=== PATIENT | male | born 1965 | race Caucasian/White ===

== ENCOUNTER 2019-10-13 08:53 | Inpatient (IN) | payer BC ==
[~2019-10-13] VITALS: Ht 177.8 cm; Wt 75.4 kg
[2019-10-13] VITALS (11 sets, daily range): BP systolic 92–170; BP diastolic 52–79
[~2019-10-13 08:53] MED LIST: HYDR1CAP2 PO; LNS30CCR PO
[2019-10-13 09:34] LABS: BASOPHILS # (AUTO) 0.1 10^3/uL (0.0-0.1); BASOPHILS % (AUTO) 1 % (0-10); EOSINOPHILS # (AUTO) 0.1 10^3/uL (0.0-0.3); EOSINOPHILS % (AUTO) 2 % (0-10); HEMATOCRIT 25 % (40-54); HEMOGLOBIN 7.2 G/DL (13.3-17.7); LYMPHOCYTES # (AUTO) 1.2 X 10^3 (1.0-4.0); LYMPHOCYTES % (AUTO) 16 % (12-44); MEAN CORPUSCULAR HEMOGLOBIN 22 PG (25-34); MEAN CORPUSCULAR HGB CONC 29 G/DL (32-36); MEAN CORPUSCULAR VOLUME 77 FL (80-99); MEAN PLATELET VOLUME 9.4 FL (7.4-10.4); MONOCYTES # (AUTO) 0.7 X 10^3 (0.0-1.0); MONOCYTES % (AUTO) 10 % (0-12); NEUTROPHILS # (AUTO) 5.4 X 10^3 (1.8-7.8); NEUTROPHILS % (AUTO) 72 % (42-75); PLATELET COUNT 411 10^3/uL (130-400); RED CELL DISTRIBUTION WIDTH 18.2 % (10.0-14.5); WHITE BLOOD COUNT 7.6 10^3/uL (4.3-11.0)
[2019-10-13 09:44] LABS: BILIRUBIN,URINE NEGATIVE (NEGATIVE); CLARITY,URINE CLEAR; COLOR,URINE YELLOW; GLUCOSE, URINE (UA) NEGATIVE (NEGATIVE); KETONES,URINE NEGATIVE (NEGATIVE); LEUKOCYTE ESTERASE ,URINE NEGATIVE (NEGATIVE); NITRITE,URINE NEGATIVE (NEGATIVE); PH,URINE 5.5 (5-9); PROTEIN,URINE NEGATIVE (NEGATIVE)
[2019-10-13 09:52] LABS: INR 0.9 (0.8-1.4); PROTHROMBIN TIME PATIENT 12.8 SEC (12.2-14.7)
[2019-10-13 09:56] LABS: BACTERIA,URINE NEGATIVE /HPF; RBC,URINE RARE /HPF; URINE OTHER FEW SPERM /HPF; WBC,URINE RARE /HPF
[2019-10-13 10:09] LABS: ALANINE AMINOTRANSFERASE 10 U/L (0-55); ALKALINE PHOSPHATASE 51 U/L (40-136); BILIRUBIN,TOTAL 0.2 MG/DL (0.1-1.0); BUN/CREATININE RATIO 25; CALCIUM 9.1 MG/DL (8.5-10.1); CARBON DIOXIDE 24 MMOL/L (21-32); CHLORIDE 109 MMOL/L (98-107); CREATININE SERUM 0.87 MG/DL (0.60-1.30); GFR ESTIMATED > 60; GLUCOSE 143 MG/DL (70-105); POTASSIUM 3.7 MMOL/L (3.6-5.0); SODIUM 141 MMOL/L (135-145); TOTAL PROTEIN 6.6 GM/DL (6.4-8.2)
[2019-10-13] MEDS ORDERED: NS IV 500 ML 500 ML ONE (10:26)
--- NOTE | 2019-10-13 10:32 | ED GI ---
General Chief Complaint: Abdominal/GI Problems Stated Complaint: WEAKNESS,BLACK STOOLS Nursing Triage Note: Pt reports black stools yesterday and severe fatigue and weakness today. Pt reports history of heavy whiskey drinking off and on for the past ten years. Pt reports drinking 1 pint of whiskey most days. Pt denies pain. Sepsis Screen: No Definite Risk Source of Information: Patient Exam Limitations: No Limitations History of Present Illness Date Seen by Provider: Oct 13, 2019 Time Seen by Provider: 09:07 Initial Comments This 54-year-old gentleman presents to the emergency room feeling severely weak and fatigued today. He was having difficulty ambulating stairs which is unusual for him. He reports melena since last night. He has had no bright red blood per rectum and no hematemesis. He denies nausea, vomiting, or diarrhea. He has no shortness of breath. He denies any significant health problems except "acid reflux and indigestion with possible hiatal hernia". He does admit to drinking alcohol daily, usually about a pint of hard alcohol. His last alcoholic beverage was October 10. He has no local primary care provider and takes no medications except iptv-zeq-krziili Gaviscon. Gaviscon did not help this morning. He is noted to be mildly tachycardic with a systolic blood pressure in the 90s. Allergies and Home Medications Allergies Coded Allergies: No Known Drug Allergies (Unverified , 04/27/10) Home Medications Lansoprazole 15 Mg Capsule.dr, 15 MG PO DAILY, (Reported) Patient Home Medication List Home Medication List Reviewed: Yes Review of Systems Review of Systems Constitutional: see HPI EENTM: No Symptoms Reported Respiratory: No Symptoms Reported Cardiovascular: No Symptoms Reported Gastrointestinal: See HPI Genitourinary: No Symptoms Reported Musculoskeletal: no symptoms reported Skin: no symptoms reported Psychiatric/Neurological: See HPI Endocrine: No Symptoms Reported Past Ksulmjh-Ztmrzy-Ctkeuz Hx Past Med/Social Hx: Reviewed and Corrections made Patient Social History Alcohol Use: Regular Use Alcohol Beverage of Choice: Whiskey Recreational Drug Use: No Smoking Status: Current Everyday Smoker Type Used: Cigarettes 2nd Hand Smoke Exposure: Yes Recent Foreign Travel: No Contact w/Someone Who Travel: No Recent Infectious Disease Expo: No Recent Hopitalizations: No Past Medical History Surgeries: Yes (wisdom teeth) Respiratory: No Cardiac: No Neurological: No Genitourinary: No Gastrointestinal: Yes Gastroesophageal Reflux Musculoskeletal: No Endocrine: No HEENT: No Cancer: No Psychosocial: No Integumentary: No Blood Disorders: No Physical Exam Vital Signs Vital Signs - First Documented 10/13/19 09:00 Temp 36.7 Pulse 103 Resp 17 B/P (MAP) 113/86 (95) Pulse Ox 100 O2 Delivery Room Air Capillary Refill : Less Than 3 Seconds Height/Weight/BMI Height: '" Weight: lbs. oz. kg; 23.00 BMI Method: General Appearance: WD/WN HEENT: PERRL/EOMI, normal ENT inspection Neck: normal inspection Respiratory: lungs clear, normal breath sounds, no respiratory distress, no accessory muscle use Cardiovascular: regular rate, rhythm, no edema, no murmur Gastrointestinal: normal bowel sounds, non tender, soft Extremities: normal inspection, no pedal edema Neurologic/Psychiatric: down filler II-XII nml as tested, no motor/sensory deficits, alert, normal mood/affect, oriented x 3 Skin: normal color, warm/dry Progress/Results/Core Measures Results/Orders Lab Results Laboratory Tests Test 10/13/19 09:15 10/13/19 09:35 Range/Units White Blood Count 7.6 4.3-11.0 10^3/uL Red Blood Count 3.26 L 4.35-5.85 10^6/uL Hemoglobin 7.2 L 13.3-17.7 G/DL Hematocrit 25 L 40-54 % Mean Corpuscular Volume 77 L 80-99 FL Mean Corpuscular Hemoglobin 22 L 25-34 PG Mean Corpuscular Hemoglobin Concent 29 L 32-36 G/DL Red Cell Distribution Width 18.2 H 10.0-14.5 % Platelet Count 411 H 130-400 10^3/uL Mean Platelet Volume 9.4 7.4-10.4 FL Neutrophils (%) (Auto) 72 42-75 % Lymphocytes (%) (Auto) 16 12-44 % Monocytes (%) (Auto) 10 0-12 % Eosinophils (%) (Auto) 2 0-10 % Basophils (%) (Auto) 1 0-10 % Neutrophils # (Auto) 5.4 1.8-7.8 X 10^3 Lymphocytes # (Auto) 1.2 1.0-4.0 X 10^3 Monocytes # (Auto) 0.7 0.0-1.0 X 10^3 Eosinophils # (Auto) 0.1 0.0-0.3 10^3/uL Basophils # (Auto) 0.1 0.0-0.1 10^3/uL Prothrombin Time 12.8 12.2-14.7 SEC INR Comment 0.9 0.8-1.4 Activated Partial Thromboplast Time 23 L 24-35 SEC Sodium Level 141 135-145 MMOL/L Potassium Level 3.7 3.6-5.0 MMOL/L Chloride Level 109 H 98-107 MMOL/L Carbon Dioxide Level 24 21-32 MMOL/L Anion Gap 8 5-14 MMOL/L Blood Urea Nitrogen 22 H 7-18 MG/DL Creatinine 0.87 0.60-1.30 MG/DL Estimat Glomerular Filtration Rate > 60 BUN/Creatinine Ratio 25 Glucose Level 143 H 70-105 MG/DL Calcium Level 9.1 8.5-10.1 MG/DL Corrected Calcium 9.1 8.5-10.1 MG/DL Total Bilirubin 0.2 0.1-1.0 MG/DL Aspartate Amino Transf (AST/SGOT) 11 5-34 U/L Alanine Aminotransferase (ALT/SGPT) 10 0-55 U/L Alkaline Phosphatase 51 40-136 U/L Total Protein 6.6 6.4-8.2 GM/DL Albumin 4.0 3.2-4.5 GM/DL Urine Color YELLOW Urine Clarity CLEAR Urine pH 5.5 5-9 Urine Specific Hines >=1.030 1.016-1.022 Urine Protein NEGATIVE NEGATIVE Urine Glucose (UA) NEGATIVE NEGATIVE Urine Ketones NEGATIVE NEGATIVE Urine Nitrite NEGATIVE NEGATIVE Urine Bilirubin NEGATIVE NEGATIVE Urine Urobilinogen 0.2 < = 1.0 MG/DL Urine Leukocyte Esterase NEGATIVE NEGATIVE Urine RBC (Auto) NEGATIVE NEGATIVE Urine RBC RARE /HPF Urine WBC RARE /HPF Urine Crystals NONE /LPF Urine Bacteria NEGATIVE /HPF Urine Casts NONE /LPF Urine Mucus SMALL H /LPF Urine Other FEW SPERM H /HPF Urine Culture Indicated NO My Orders Orders - SACHA TOLEDO MD Cbc With Automated Diff (10/13/19 09:07) Comprehensive Metabolic Panel (10/13/19 09:07) Protime With Inr (10/13/19 09:07) Partial Thromboplastin Time (10/13/19 09:07) Ed Iv/Invasive Line Start (10/13/19 09:07) Ua Culture If Indicated (10/13/19 09:07) Red Cells Leukocytes Reduced (10/13/19 09:39) Type And Screen (10/13/19 09:39) Ns Iv 500 Ml (Sodium Chloride 0.9%) (10/13/19 10:26) Medications Given in ED Vital Signs/I&O 10/13/19 09:00 Temp 36.7 Pulse 103 Resp 17 B/P (MAP) 113/86 (95) Pulse Ox 100 O2 Delivery Room Air Blood Pressure Mean: 95 Progress Progress Note : Time: 10:40 Progress Note Patient was found to be severely anemic with a hemoglobin of 7.2. Because of his mild tachycardia, marginal blood pressure, and symptoms, it was deemed appropriate to transfuse. He will be transfused one unit of packed red blood cells and one unit will be held. I spoke with Dr. Benson who ideally would like to prep him to day and perform both upper and lower endoscopy tomorrow. Protonix will be given in the ER. Patient is being admitted to the hospital service at Dr. Benson's request. Departure Communication (Admissions) Time/Spoke to Admitting Phy: 10:35 Dr. Mclain Time/Spoke to Consulting Phy: 10:15 Dr. Benson Impression Primary Impression: Severe anemia Additional Impressions: Melena Generalized weakness Disposition: ADMITTED INPATIENT Condition: Stable Admissions Decision to Admit Reason: Admit from ER (General) Decision to Admit/Date: Oct 13, 2019 Time/Decision to Admit Time: 10:15 Departure-Patient Inst. Referrals: NO,LOCAL PHYSICIAN (PCP/Family) Primary Care Physician SACHA TOLEDO MD Oct 13, 2019 10:32
[2019-10-13] MEDS ORDERED: PANTOPRAZOLE 40 MG (PROTONIX) VIAL IV ONE (10:45)
--- NOTE | 2019-10-13 10:56 | NUR ---
Delay in second set of vitals as spacelab would not take blood pressure. This nurse had to obtain portable vital machine from fast track.
--- NOTE | 2019-10-13 11:10 | NUR ---
Pt tolerating blood transfusion well. Pt taken another warm blanket.
--- NOTE | 2019-10-13 11:30 | NUR ---
THERE WAS AN ERROR IN ADMISSION PART A VITALS THAT WERE CHARTED. THE CORRECTED VITALS ARE: BLOOD PRESSURE 106/67 RIGHT ARM HEART RATE 96 TEMP. 36.0 C RESP 18 SPO2 98& PAIN 0
--- NOTE | 2019-10-13 11:30 | NUR ---
KARLA DAVIS admitted to room 417-1, with an admitting diagnosis of MELENA AND SEVERE ANEMIA, on 10/13/19 from ED via [facility], accompanied by ED STAFF. KARLA DAVIS introduced to surroundings, call light, bed controls, phone, TV, temperature control, lights, meal times, smoking policy, visitor policy, side rail policy, bathrooms and showers. Patient Rights given to patient in the handbook. KARLA DAVIS verbalizes understanding that [facility] is not responsible for the loss or damage to any personal effects or valuables that are kept in the patients possession during their hospitalization. The following Patient Care Plans were discussed with the PATIENT: Discharge Planning, GASTROINTESTINAL BLEED, ANEMIA and KNOWLEDGE DEFICIT. KARLA DAVIS verbalizes understanding of Interdisciplinary Patient Education. Patient and/or family were informed about the Rapid Response Team and its purpose.
--- NOTE | 2019-10-13 11:30 | NUR ---
Blood products running to floor.
[2019-10-13] MEDS ORDERED: 1/2 NS IV SOLUTION 1,000 ML IV PRN (12:08)
[2019-10-13] MEDS ORDERED: SENNA W/DOCUSATE (SENOKOT S) TABLET PO PRN (12:15)
[2019-10-13] MEDS ORDERED: fentaNYL INJECTION 100 MCG/2 ML AMP IVP PRN (12:15)
[2019-10-13] MEDS ORDERED: ONDANSETRON 4 MG/2 ML (SDV) Z0FRAN IVP PRN (12:15)
[2019-10-13] MEDS ORDERED: ANTACID SUSP 30 ML UDC (MYLANTA) PO PRN (12:15)
[2019-10-13] MEDS ORDERED: LORazepam 1 MG (ATIVAN) TAB PO PRN (12:15)
[2019-10-13] MEDS ORDERED: LORazepam INJ 2 MG/ML (ATIVAN) VIAL IM/IV PRN (12:15)
[2019-10-13] MEDS ORDERED: ONDANSETRON 4 MG/2 ML (SDV) Z0FRAN IV PRN (12:15)
[2019-10-13] MEDS ORDERED: D5 1/2 NS 1000 ML IV SOLUTION 1,000 ML IV PRN (12:15)
[2019-10-13] MEDS ORDERED: LORazepam INJ 2 MG/ML (ATIVAN) VIAL IV PRN (12:15)
[2019-10-13] MEDS ORDERED: ONDANSETRON 4 MG (ZOFRAN) ORAL DISSOLVE TAB SL PRN (12:15)
[2019-10-13] MEDS: NICOTINE 21 MG (NICODERM) PATCH TD SCH (12:35)
[2019-10-13] MEDS ORDERED: BISACODYL 5 MG (DULCOLAX) TABLET PO NR ×2 (13:30→15:00)
[2019-10-13] MEDS: THIAMINE INJECTION 100 MG, FOLIC ACID INJECTION 1 MG, MAGNESIUM SULFATE 2 GM, VITAMIN M... IV SCH ×5 (13:34)
[2019-10-13] MEDS: D5 1/2 NS W/KCL 20 MEQ/L 1,000 ML IV SCH ×2 (13:34→19:59)
[2019-10-13] MEDS ORDERED: LANS15CA5 PO (13:49)
[2019-10-13] MEDS ORDERED: IBUP-2473 PO (13:49)
--- NOTE | 2019-10-13 13:51 | NUR ---
SPOKE WITH THE PT TO UPDATE THE MED REC. PT SAYS HE DOES NOT TAKE ANY PRESCRIPTION MEDICATIONS AND THE ONLY THING HE TAKES ARE OTC'S. OTC MEDS: PRILOSEC IBUPROFEN
--- NOTE | 2019-10-13 14:03 | Consultation - Surgery ---
History of Present Illness History of Present Illness Patient Consulted On(werner/time) 10/13/19 13:55 Time Seen by Provider: 13:24 History of Present Illness Surgery asked to consult regarding Anemia and Melena. HPI per ED: Pt reports black stools yesterday and severe fatigue and weakness today. Pt reports history of heavy whiskey drinking off and on for the past ten years. Pt reports drinking 1 pint of whiskey most days. Pt denies pain. This 54-year-old gentleman presents to the emergency room feeling severely weak and fatigued today. He was having difficulty ambulating stairs which is unusual for him. He reports melena since last night. He has had no bright red blood per rectum and no hematemesis. He denies nausea, vomiting, or diarrhea. He has no shortness of breath. He denies any significant health problems except "acid reflux and indigestion with possible hiatal hernia". He does admit to drinking alcohol daily, usually about a pint of hard alcohol. His last alcoholic beverage was October 10. He has no local primary care provider and takes no medications except iwhn-qcw-jhigiip Gaviscon. Gaviscon did not help this morning. He is noted to be mildly tachycardic with a systolic blood pressure in the 90s. When I spoke to pt this afternoon he states he has ever had black BM's before this and doesn't remember a time when he felt this weak. States he had a colonoscopy and Barium swallow in his 30's because "of acid reflux." Pt denies abdominal pain. Allergies and Home Medications Allergies Coded Allergies: No Known Drug Allergies (Unverified , 04/27/10) Home Medications Ibuprofen 200 Mg Tablet, 400 MG PO Q8H PRN for PAIN-MILD (1-4), (Reported) Lansoprazole 15 Mg Capsule.dr, 15 MG PO DAILY, (Reported) Patient Home Medication List Home Medication List Reviewed: Yes Past Lmfssem-Dfoxnj-Npsaws Hx Patient Social History Alcohol Use: Regular Use Recreational Drug Use: No Smoking Status: Current Everyday Smoker Type Used: Cigarettes 2nd Hand Smoke Exposure: Yes Recent Foreign Travel: No Contact w/Someone Who Travel: No Recent Infectious Disease Expo: No Recent Hopitalizations: No Surgeries History of Surgeries: Yes (wisdom teeth) Respiratory History of Respiratory Disorde: No Cardiovascular History of Cardiac Disorders: No Neurological History of Neurological Disord: No Genitourinary History of Genitourinary Disor: No Gastrointestinal History of Gastrointestinal Di: Yes Gastrointestinal Disorders: Gastroesophageal Reflux Musculoskeletal History of Musculoskeletal Dis: No Endocrine History of Endocrine Disorders: No HEENT History of HEENT Disorders: No Cancer History of Cancer: No Psychosocial History of Psychiatric Problem: No Integumentary History of Skin or Integumenta: No Blood Transfusions History of Blood Disorders: No Family Medical History Significant Family History: Diabetes (Father), Other Conditions/Hx (Mother had Hiatal hernia surgery) Review of Systems-General Constitutional: malaise, weakness EENTM: No blurred vision, No double vision, No mouth pain, No mouth swelling, No epistaxis, No throat swelling Respiratory: No cough; dyspnea on exertion; No hemoptysis Cardiovascular: No chest pain, No edema, No palpitations Gastrointestinal: No abdominal pain, No jaundice; melena; No nausea, No vomiting Genitourinary: No dysuria, No frequency, No hematuria Musculoskeletal: No joint pain, No joint swelling, No muscle stiffness Skin: No change in color, No change in hair/nails Psychiatric/Neurological: Denies Anxiety, Denies Depressed, Denies Seizure, Denies Tremors Other pt denies any hx of abnormal bleeding or bruising. Physical Exam-General Problems Physical Exam Vital Signs Vital Signs - First Documented 10/13/19 09:00 Temp 36.7 Pulse 103 Resp 17 B/P (MAP) 113/86 (95) Pulse Ox 100 O2 Delivery Room Air Capillary Refill : Less Than 3 Seconds General Appearance: WD/WN, no apparent distress Eyes: Bilateral Eye PERRL, Bilateral Eye EOMI HEENT: pharynx normal; No scleral icterus (R), No scleral icterus (L) Neck: non-tender, full range of motion, supple Respiratory: chest non-tender, lungs clear, normal breath sounds, no respiratory distress, no accessory muscle use Cardiovascular: regular rate, rhythm, no edema, no murmur Gastrointestinal: normal bowel sounds, non tender, soft, no organomegaly, no pulsatile mass Back: no CVA tenderness, no vertebral tenderness Extremities: normal range of motion, non-tender, normal inspection, no pedal edema, no calf tenderness, normal capillary refill Neurologic/Psychiatric: drug inspector II-XII nml as tested, no motor/sensory deficits, alert, normal mood/affect, oriented x 3 Skin: normal color, warm/dry Lymphatic: no adenopathy (neck, axilla or groin) Data Review Labs Laboratory Tests 10/13/19 09:15: White Blood Count 7.6, Red Blood Count 3.26L, Hemoglobin 7.2L, Hematocrit 25L, Mean Corpuscular Volume 77L, Mean Corpuscular Hemoglobin 22L, Mean Corpuscular Hemoglobin Concent 29L, Red Cell Distribution Width 18.2H, Platelet Count 411H, Mean Platelet Volume 9.4, Neutrophils (%) (Auto) 72, Lymphocytes (%) (Auto) 16, Monocytes (%) (Auto) 10, Eosinophils (%) (Auto) 2, Basophils (%) (Auto) 1, Karla trophils # (Auto) 5.4, Lymphocytes # (Auto) 1.2, Monocytes # (Auto) 0.7, Eosinophils # (Auto) 0.1, Basophils # (Auto) 0.1, Prothrombin Time 12.8, INR Comment 0.9, Activated Partial Thromboplast Time 23L, Sodium Level 141, Potassium Level 3.7, Chloride Level 109H, Carbon Dioxide Level 24, Anion Gap 8, Blood Urea Nitrogen 22H, Creatinine 0.87, Estimat Glomerular Filtration Rate > 60, BUN/Creatinine Ratio 25, Glucose Level 143H, Calcium Level 9.1, Corrected Calcium 9.1, Total Bilirubin 0.2, Aspartate Amino Transf (AST/SGOT) 11, Alanine Aminotransferase (ALT/SGPT) 10, Alkaline Phosphatase 51, Total Protein 6.6, Albumin 4.0 10/13/19 09:35: Urine Color YELLOW, Urine Clarity CLEAR, Urine pH 5.5, Urine Specific Ola >=1.030, Urine Protein NEGATIVE, Urine Glucose (UA) NEGATIVE, Urine Ketones NEGATIVE, Urine Nitrite NEGATIVE, Urine Bilirubin NEGATIVE, Urine Urobilinogen 0.2, Urine Leukocyte Esterase NEGATIVE, Urine RBC (Auto) NEGATIVE, Urine RBC RARE, Urine WBC RARE, Urine Crystals NONE, Urine Bacteria NEGATIVE, Urine Casts NONE, Urine Mucus SMALLH, Urine Other FEW SPERMH, Urine Culture Indicated NO Assessment/Plan Assessment/Plan Assessment/Plan Anemia Melena Pt is getting IV fluids, received one unit of PRBC, anti-emetics, pain control as needed. Prep for colonoscopy started now. Plan is EGD/Colonoscopy tomorrow around noon. Discussed the procedure with pt; including risks and complications not limited to pain, bleeding, infection, intestinal perforation and esophageal perforation. All questions answered to his satisfaction. Will obtain consent. DANIELLE MACE DO Oct 13, 2019 14:03
--- NOTE | 2019-10-13 15:23 | History & Physical-Hospitalist ---
History of Present Illness HPI/Chief Complaint Patient is 54-year-old male with past medical history of daily alcohol use who presented to the emergency department with chief complaint of low energy and black stools. He states he has had black stools in the past but has never had this worked up. He noticed that his stool yesterday morning was black. He was fatigued at that time but upon awakening this morning could hardly take a few steps due to the fatigue. He has since had another black stool. Found to have a hemoglobin of 7 and was admitted to the hospital for GI bleed. He believes he may be slightly pale but is unsure. Source: patient Exam Limitations: no limitations Date Seen 10/13/19 Time Seen by a Provider: 15:33 Attending Physician Forrest Mclain MD PCP No,Local Physician Referring Physician Date of Admission Oct 13, 2019 at 10:33 Home Medications & Allergies Home Medications Reviewed patient Home Medication Reconciliation performed by pharmacy medication reconciliations facilities operations technician and/or nursing. Patients Allergies have been reviewed. Allergies Allergies Coded Allergies No Known Drug Allergies (Unverified04/27/10) Past Zxhvmgf-Gorvvl-Bzkslu Hx Past Med/Social Hx: Reviewed Nursing Past Med/Soc Hx, Reviewed and Corrections made Patient Social History Alcohol Use: Regular Use Alcohol Beverage of Choice: Whiskey Recreational Drug Use: No Smoking Status: Current Everyday Smoker Type Used: Cigarettes 2nd Hand Smoke Exposure: Yes Recent Foreign Travel: No Contact w/other who traveled: No Recent Hopitalizations: No Recent Infectious Disease Expo: No Past Medical History Gastrointestinal: Gastroesophageal Reflux History of Blood Disorders: No Family History Cataracts 19 MOTHER Deafness or hearing loss 19 FATHER Diabetes mellitus 19 FATHER Headache disorder 19 MOTHER Diabetes (Father), Other Conditions/Hx (Mother had Hiatal hernia surgery) Review of Systems Constitutional: malaise, weakness EENTM: no symptoms reported Cardiovascular: no symptoms reported Gastrointestinal: No hematemesis; heartburn, melena; No nausea, No vomiting Genitourinary: no symptoms reported Musculoskeletal: no symptoms reported Skin: see HPI Psychiatric/Neurological: No Symptoms Reported Physical Exam Physical Exam Vital Signs Vital Signs - First Documented 10/13/19 09:00 Temp 36.7 Pulse 103 Resp 17 B/P (MAP) 113/86 (95) Pulse Ox 100 O2 Delivery Room Air Capillary Refill : Less Than 3 Seconds Height, Weight, BMI Height: '" Weight: lbs. oz. kg; 23.85 BMI Method: General Appearance: No Apparent Distress, WD/WN Eyes: Bilateral Eye Conjunctivae Pale HEENT: Moist Mucous Membranes; No Scleral Icterus (L), No Scleral Icterus (R) Neck: Normal Inspection, Supple Respiratory: Lungs Clear, No Accessory Muscle Use, No Respiratory Distress Cardiovascular: Regular Rate, Rhythm, No Murmur Gastrointestinal: Normal Bowel Sounds, Non Tender, Soft Extremity: Normal Capillary Refill, No Calf Tenderness, No Pedal Edema Neurologic/Psychiatric: Alert, Oriented x3, Normal Mood/Affect; No Aphasia, No Facial Droop Skin: Warm/Dry, Pallor; No Petechia Results Results/Procedures Labs Laboratory Tests 10/13/19 09:15 10/14/19 05:09 Patient resulted labs reviewed. Assessment/Plan Admission Diagnosis GI Bleed Admission Status: Inpatient Order (span 2 midnights) Reason for Inpatient Admission: severe anemia, blood transfusion, needs colonoscopy Assessment and Plan GI Bleed s/p 1 unit pRBCs Goal Hgb >8 since continuing to bleed Surgery consulted, appreciate recs Plan for scope tomorrow Hemodynamically stable at this time Alcohol abuse CIWA protocol No history of withdrawal Drinks 1 pt/night Tobacco abuse Recommended cessation Was able to quit for 9 years but has been smoking for 13 years now Nicotine patch Diagnosis/Problems Diagnosis/Problems (1) Tobacco abuse Status: Chronic (2) Alcohol abuse Status: Chronic (3) GI bleed Status: Acute Qualifiers: GI bleed type/associated pathology: unspecified gastrointestinal hemorrhage type Qualified Codes: K92.2 - Gastrointestinal hemorrhage, unspecified (4) Severe anemia Status: Acute (5) Melena Status: Acute (6) Generalized weakness Status: Acute Clinical Quality Measures DVT/VTE Risk/Contraindication: Risk Factor Score Per Nursin RFS Level Per Nursing on Admit: 2=Moderate FORREST MCLAIN MD Oct 13, 2019 15:23
[2019-10-13] MEDS ORDERED: polyethylene glycoL POWDER 17 GM (MIRALAX) PACK PO NR (18:00)
[2019-10-13] MEDS: PANTOPRAZOLE 40 MG (PROTONIX) VIAL IV SCH (21:09)
[2019-10-14] VITALS (8 sets, daily range): BP systolic 90–116; BP diastolic 52–73
[2019-10-14] MEDS: D5 1/2 NS W/KCL 20 MEQ/L 1,000 ML IV SCH ×2 (04:18→13:56)
[2019-10-14 05:51] LABS: BASOPHILS % (AUTO) 1 % (0-10); EOSINOPHILS # (AUTO) 0.2 10^3/uL (0.0-0.3); EOSINOPHILS % (AUTO) 3 % (0-10); HEMATOCRIT 26 % (40-54); HEMOGLOBIN 7.7 G/DL (13.3-17.7); LYMPHOCYTES # (AUTO) 1.5 X 10^3 (1.0-4.0); LYMPHOCYTES % (AUTO) 26 % (12-44); MEAN CORPUSCULAR HEMOGLOBIN 23 PG (25-34); MEAN CORPUSCULAR HGB CONC 30 G/DL (32-36); MEAN CORPUSCULAR VOLUME 78 FL (80-99); MEAN PLATELET VOLUME 9.7 FL (7.4-10.4); MONOCYTES # (AUTO) 0.7 X 10^3 (0.0-1.0); MONOCYTES % (AUTO) 12 % (0-12); NEUTROPHILS # (AUTO) 3.5 X 10^3 (1.8-7.8); NEUTROPHILS % (AUTO) 60 % (42-75); PLATELET COUNT 346 10^3/uL (130-400); RED CELL DISTRIBUTION WIDTH 18.1 % (10.0-14.5); WHITE BLOOD COUNT 5.9 10^3/uL (4.3-11.0)
[2019-10-14 06:13] LABS: ALANINE AMINOTRANSFERASE 12 U/L (0-55); ALBUMIN 3.6 GM/DL (3.2-4.5); ALKALINE PHOSPHATASE 42 U/L (40-136); BILIRUBIN,TOTAL 0.3 MG/DL (0.1-1.0); BUN/CREATININE RATIO 10; CALCIUM 8.3 MG/DL (8.5-10.1); CARBON DIOXIDE 17 MMOL/L (21-32); CHLORIDE 111 MMOL/L (98-107); GFR ESTIMATED > 60; GLUCOSE 100 MG/DL (70-105); POTASSIUM 3.9 MMOL/L (3.6-5.0); SODIUM 137 MMOL/L (135-145)
[2019-10-14] MEDS: NICOTINE 21 MG (NICODERM) PATCH TD SCH (08:14)
[2019-10-14] MEDS: PANTOPRAZOLE 40 MG (PROTONIX) VIAL IV SCH (08:14)
[2019-10-14] MEDS: THIAMINE INJECTION 100 MG, FOLIC ACID INJECTION 1 MG, MAGNESIUM SULFATE 2 GM, VITAMIN M... IV SCH ×5 (08:41)
[2019-10-14] MEDS ORDERED: NICOTINE PATCH REMOVAL TP SCH (08:59)
--- NOTE | 2019-10-14 09:57 | Discharge Inst-Simple/Standard ---
Discharge Inst-Standard Patient Instructions/Follow Up Plan of Care/Instructions/FU: Please continue to take your medications as written. Please follow up with your primary care doctor in the next week and with Dr Benson as recommended. Activity as Tolerated: Yes Discharge Diet: Other Diet ([place] diet ) Return to The Hospital For: Dark stools, weakness, fatigue, chest pain, heart racing, if you feel you are getting worse. Planned Outpatient Orders/Ref. Pneu Vac Indicated: Yes FORREST ORELLANA MD Oct 14, 2019 09:57
--- NOTE | 2019-10-14 10:01 | Discharge Summary ---
Diagnosis/Chief Complaint Date of Admission Oct 13, 2019 at 10:33 Date of Discharge Discharge Date: Oct 14, 2019 Admission Diagnosis GI Bleed Primary Care No,Local Physician Discharge Diagnosis (1) Tobacco abuse Status: Chronic (2) Alcohol abuse Status: Chronic (3) GI bleed Status: Acute (4) Severe anemia Status: Acute (5) Melena Status: Acute (6) Generalized weakness Status: Acute Discharge Summary Procedures/Consulations Dr Benson Discharge Physical Exam Allergies: Coded Allergies: No Known Drug Allergies (Unverified , 04/27/10) Vitals & I&Os Vital Signs Date Time Temp Pulse Resp B/P (MAP) Pulse Ox O2 Delivery O2 Flow Rate FiO2 10/14/19 17:07 36.3 84 16 113/72 100 Room Air General Appearance: No Apparent Distress, WD/WN Respiratory: Lungs Clear, No Respiratory Distress Cardiovascular: Regular Rate, Rhythm, No Murmur Neurologic/Psychiatric: Alert, Oriented x3 Hospital Course Patient was admitted due to GI bleed and anemia. He was transfused 1 unit throughout this admission due to hemoglobin of 7 and active GI bleed. His hemoglobin then stabilized. He underwent a bowel prep and underwent EGD and colonoscopy. This revealed gastritis with gastric ulcer. He was started on a PPI IV while in the hospital and continued on this on discharge. He is follow- up with his primary care physician within the next week. He had an otherwise uncomplicated hospital stay and was discharged home in stable condition. Labs (last 24 hrs) Laboratory Tests 10/15/19 15:51: Lab Scanned Report Transfusion Reaction Form Microbiology 10/14/19 MRSA Screen - Final, Complete MRSA not isolated Patient resulted labs reviewed. Pending Labs Discussion & Recommendations Discharge Planning: <30 minutes discharge planning Discharge Home Medications: Active Scripts Active Reported Lansoprazole 15 Mg Capsule. 15 Mg PO DAILY Instructions to patient/family Please see electronic discharge instructions given to patient. Clinical Quality Measures DVT/VTE Risk/Contraindication: Risk Factor Score Per Nursin RFS Level Per Nursing on Admit: 2=Moderate Other: GI BLEED Problem Qualifiers (1) GI bleed: GI bleed type/associated pathology: unspecified gastrointestinal hemorrhage type Qualified Codes: K92.2 - Gastrointestinal hemorrhage, unspecified FORREST ORELLANA MD Oct 14, 2019 10:01
--- NOTE | 2019-10-14 10:13 | Progress Note - Surgery ---
Subjective Time Seen by a Provider: 08:24 Subjective/Events-last exam Pt seen and examined, denies abdominal pain but thinks he still sees some black BM's. Review of Systems General: No Chills, No Night Sweats Pulmonary: No Dyspnea, No Cough Gastrointestinal: No: Nausea, Vomiting, Abdominal Pain Objective Exam Vital Signs Date Time Temp Pulse Resp B/P (MAP) Pulse Ox O2 Delivery O2 Flow Rate FiO2 10/14/19 08:00 36.8 90 16 99/57 (71) 93 Room Air 10/14/19 08:00 Room Air 10/14/19 07:00 82 10/14/19 03:40 37.2 83 14 116/73 (87) 99 Room Air 10/14/19 01:00 92 10/14/19 00:28 36.5 92 16 101/67 (78) 97 Room Air 10/13/19 20:26 110 10/13/19 20:00 36.4 98 18 113/71 (85) 98 Room Air 10/13/19 20:00 Room Air 10/13/19 19:00 100 10/13/19 16:00 37.2 94 18 110/71 (84) 96 Room Air 10/13/19 14:53 36.2 80 18 170/52 96 Room Air 10/13/19 13:30 36.6 100 18 106/70 99 Room Air 10/13/19 12:43 102 10/13/19 12:00 96 Room Air 10/13/19 12:00 36.7 96 18 106/67 (80) 98 Room Air 10/13/19 11:30 36.8 98 10 110/79 99 10/13/19 11:30 36.8 98 10 110/79 (89) 99 Room Air 10/13/19 11:20 36.8 98 15 103/70 98 Room Air 10/13/19 11:05 36.8 100 13 103/65 98 Room Air 10/13/19 11:00 36.8 101 16 92/73 97 Room Air 10/13/19 10:55 36.8 100 14 100/71 99 Room Air 10/13/19 10:41 36.8 83 14 117/74 98 Room Air I & O 10/14/19 07:00 Intake Total 3900 ml Output Total 1220 ml Balance 2680 ml Capillary Refill : Less Than 3 Seconds General Appearance: No Apparent Distress, WD/WN HEENT: Moist Mucous Membranes; No Scleral Icterus (L), No Scleral Icterus (R) Respiratory: Lungs Clear, No Accessory Muscle Use, No Respiratory Distress Cardiovascular: Regular Rate, Rhythm, No Murmur Gastrointestinal: normal bowel sounds, non tender, soft, no organomegaly, no pulsatile mass Skin: Warm/Dry, Pallor Results Lab Laboratory Tests 10/14/19 05:09: White Blood Count 5.9, Red Blood Count 3.32L, Hemoglobin 7.7L, Hematocrit 26L, Mean Corpuscular Volume 78L, Mean Corpuscular Hemoglobin 23L, Mean Corpuscular Hemoglobin Concent 30L, Red Cell Distribution Width 18.1H, Platelet Count 346, Mean Platelet Volume 9.7, Neutrophils (%) (Auto) 60, Lymphocytes (%) (Auto) 26, Monocytes (%) (Auto) 12, Eosinophils (%) (Auto) 3, Basophils (%) (Auto) 1, Neutrophils # (Auto) 3.5, Lymphocytes # (Auto) 1.5, Monocytes # (Auto) 0.7, Eosinophils # (Auto) 0.2, Basophils # (Auto) 0.0, Sodium Level 137, Potassium Level 3.9, Chloride Level 111H, Carbon Dioxide Level 17L, Anion Gap 9, Blood Urea Nitrogen 8, Creatinine 0.80, Estimat Glomerular Filtration Rate > 60, BUN/Creatinine Ratio 10, Glucose Level 100, Calcium Level 8.3L, Corrected Calcium 8.6, Total Bilirubin 0.3, Aspartate Amino Transf (AST/SGOT) 15, Alanine Aminotransferase (ALT/SGPT) 12, Alkaline Phosphatase 42, Total Protein 6.0L, Albumin 3.6 Assessment/Plan Assessment/Plan Assessment/Plan Anemia Melena Pt did prep for colonoscopy and plan is EGD/Colonoscopy around noon. Discussed the procedure with pt; including risks and complications not limited to pain, bleeding, infection, intestinal perforation and esophageal perforation. All questions answered to his satisfaction. Clinical Quality Measures DVT/VTE Risk/Contraindication: Risk Factor Score Per Nursin RFS Level Per Nursing on Admit: 2=Moderate Other: GI BLEED DANIELLE MACE DO Oct 14, 2019 10:13
[2019-10-14] MEDS ORDERED: MIDAZOLAM 2 MG/2 ML (VERSED) VIAL ONE (12:04)
[2019-10-14] MEDS ORDERED: PROPOFOL INJECTION 50 ML IV ONE ×2 (12:04→12:19)
[2019-10-14] MEDS ORDERED: LACTATED RINGERS 1,000 ML IV ONE (12:04)
--- NOTE | 2019-10-14 12:05 | NUR ---
taken down to endo for EGD AND COLONOSCOPY
[2019-10-14] MEDS ORDERED: LACTATED RINGERS 1,000 ML IV STA (12:34)
[2019-10-14] MEDS ORDERED: HURRICAINE EXT TUBE (BENZOCAINE) XX PRN (12:45)
--- NOTE | 2019-10-14 13:10 | NUR ---
PT BACK IN -- REPORT FROM ENDO RN
--- NOTE | 2019-10-14 14:25 | NUR ---
NO NEW ORDERS -- PT REQUESTED DIET ORDER -- DR MACE CALLED AND MESSAGE LEFT
--- NOTE | 2019-10-14 19:53 | OPERATIVE REPORT ---
DATE OF SERVICE: 10/14/2019 PREOPERATIVE DIAGNOSES: Anemia and melena. POSTOPERATIVE DIAGNOSES: 1. Gastritis, questionable gastric ulcer, small hiatal hernia. 2. Diverticula. 3. Internal hemorrhoids. 4. Colon polyp. PROCEDURE: 1. EGD with biopsy. 2. Colonoscopy with snare polypectomy. SURGEON: Brian Benson DO. THREAT ANALYST: None. ANESTHESIA: IV sedation by PATIENT ACCOUNT ANALYST. SPECIMEN: Biopsy from the antrum, body of stomach and GE junction as well as then a snare polypectomy, 2 polyps removed from the sigmoid colon. BLOOD LOSS: Scant. FLUIDS: Per anesthesia. POSTOPERATIVE CONDITION: Stable. INDICATION FOR PROCEDURE: The patient is a 54-year-old male who came in and found to be anemic, hemoglobin in the 7 range. He also had some melena and needed a workup. FINDINGS: The patient had some mild gastritis and some esophagitis, small hiatal hernia and what looked to be like possibly an old gastric ulcer with no signs of bleeding. In the colon, he had some diverticula, 2 small polyps in the sigmoid colon and some very small internal hemorrhoids. PROCEDURE NOTE: After informed consent was obtained, the patient was brought to the endoscopy suite, placed in bed in left lateral decubitus position. He was administered IV sedation by the PATIENT ACCOUNT ANALYST who then monitored his vitals the entire time, heart rate, blood pressure, pulse ox and the scope was inserted, started with the EGD, placed the scope down the mouth through the esophagus into the stomach, noted some mild gastritis, pushed into the duodenum. Duodenum looked fine. Pulled back and did a biopsy of the antrum. Retroflexed the scope, saw a small hiatal hernia, did a biopsy of the body of stomach and then saw what looked like an ulcer, took a picture of this. The biopsy the body of stomach, looked like there may have been an ulcer as well. Pulled the scope into the GE junction, did a biopsy of the GE junction and then pushed the scope back into the esophagus. Suctioned the air out and then pulled the scope up the esophagus and out the mouth. Switched gloves, switched cameras, went down below, started the colonoscopy. Pushed all the way into about 150 cm, able to get to the cecum, took a picture of appendiceal orifice. On the way in, noted some diverticula, took pictures of these and then once in the cecum, slowly withdrew the scope insufflating to look circumferentially at the perry looking the cecum, up the ascending colon to the hepatic flexure, down the transverse colon, the splenic flexure, into the descending colon and finally into the sigmoid. In the sigmoid, saw 2 small polyps, elected to do snare polypectomy, completely removed these and then into the rectal vault and retroflexed in the rectal vault, saw some minimal internal hemorrhoids, took a picture of this and then removed the scope. The patient tolerated the procedure, recovered in endoscopy suite. Job ID: [id number] DocumentID: [id number] Dictated Date: 10/14/2019 14:28:52 Data Governance Consultant Date: 10/14/2019 19:52:50 Dictated By: BRIAN BENSON DO
--- NOTE | 2019-10-16 06:43 | Physician Query Clarification ---
PQ-Further Specificity Admission/Discharge Admission Date: Oct 13, 2019 at 10:33 Discharge Date: Oct 14, 2019 at 18:09 The medical record reflects the following clinical scenario: History/Risk Factors: Low energy, Black stools Clinical Findings: Acute anemia, Hgb-7.2 Hct 25.0 Treatment: 1 unit PRBC Question: Can you further specify [Acute anemia] per the clinical indicators above? Please document a response in the Progress Notes or Discharge Summary. 1. Acute blood loss anemia 2. Chronic blood loss anemia 3. Other, with explanation of the clinical findings. 4. Clinically undetermined, no explanation for the clinical findings. PHYSICIAN RESPONSE Can you specify per above: 1 Please remember a lack of response to the above will prompt a phone page by CDI/Coding staff. In responding to this query, please exercise your independent professional judgment. The purpose of this communication is to more accurately reflect the complexity of your patients condition. The fact that a question is asked does not imply that any particular answer is desired or expected. Thank you for your timely response to this clarification. Requestors name: Juan Carloscampaulie THIS PHYSICIAN QUERY FORM IS A PERMANENT PART OF THE MEDICAL RECORD KIEKO SEGOVIA <Created by KEIKO SEGOVIA> FRANCA ADEN Oct 16, 2019 06:43 RENATA ARNOLD Nov 05, 2019 07:13 FORREST ORELLANA MD Nov 06, 2019 10:40
== END 2019-10-14 18:09 | disposition home or self-care (01) | DRG 378 ==
LOC: EDUNIT# 08:53 → ER 08:54 → 4TH 10:33
PROVIDERS: ADMIT Family Medicine; ATTEND Family Medicine
PROC: 0DB68ZX Excision of Stomach, Via Natural or Artificial Opening Endoscopic, Diagnostic (ICD-10-PCS; 2019-10-14)
PROC: 0DBN8ZZ Excision of Sigmoid Colon, Via Natural or Artificial Opening Endoscopic (ICD-10-PCS; 2019-10-14)
PROC: 0DB48ZX Excision of Esophagogastric Junction, Via Natural or Artificial Opening Endoscopic, Diagnostic (ICD-10-PCS; principal; 2019-10-14 12:00)
PROC: 0DB78ZX Excision of Stomach, Pylorus, Via Natural or Artificial Opening Endoscopic, Diagnostic (ICD-10-PCS; 2019-10-14 12:00)
DX: K29.71 Gastritis, unspecified, with bleeding (principal); D62 Acute posthemorrhagic anemia; K57.31 Diverticulosis of large intestine without perforation or abscess with bleeding; F17.210 Nicotine dependence, cigarettes, uncomplicated; K21.9 Gastro-esophageal reflux disease without esophagitis; F10.10 Alcohol abuse, uncomplicated; D64.9 Anemia, unspecified; Z79.1 Long term (current) use of non-steroidal anti-inflammatories (NSAID); K63.5 Polyp of colon; K64.8 Other hemorrhoids
CPT/HCPCS: 36415; 80053; 81000; 85025; 85610; 85730; 86850; 86900; 86901; 86920; 87081; 88305; 96361; 96374

== ENCOUNTER 2022-02-05 18:16 | Emergency (ER) | payer BC ==
[~2022-02-05] VITALS: Ht 177 cm; Wt 73.0 kg
[~2022-02-05 18:16] MED LIST changes: +IBUP-2473 PO; +LANS15CA5 PO
[2022-02-05] MEDS ORDERED: morphine INJ 10 MG/ML 1ML (SYR OR VIAL) IVP STA (19:18)
--- NOTE | 2022-02-05 19:24 | ED Fall/Injury ---
General Chief Complaint: Chest Wall Stated Complaint: R SIDE RIB PAIN Nursing Triage Note: PT FELL DOWN 3 STAIRS, HIT RIGHT SIDE AND HEARD RIBS "CRUNCH" Source: patient, family Exam Limitations: no limitations History of Present Illness Date Seen by Provider: February 05, 2022 Time Seen by Provider: 19:12 Initial Comments 56yo male to the ER with complaint of right lower rib pain after a fall down about 3 steps early this morning. He states that he fell due to "wet concrete". HIstory of smoking and daily etoh. Complains of pleuritic pain and feeling the ribs moving. He also has RUQ abdominal pain. States he did not hit his head or have a LOC. no blood thinners. Not on daily aspirin. No nausea currently. Took 2 extra strength tylenol earlier today. History of ulcers. ALl other ROS reviewed and negative except as stated. Occurred: this morning Severity: moderate Injuries/Pain Location: chest, abdomen Context: unknown Loss of Consciousness: no loss of consciousness Modifying Factors: Improves With Immobilization; Worse With Movement Associated Symptoms (Fall): Abdominal Pain, Chest Pain Allergies and Home Medications Allergies Coded Allergies: hydrocodone (Verified Allergy, Unknown, Vomiting, 02/05/22) STATES TOOK 1 TIME AND VOMITTED AN HOUR LATER Patient Home Medication List Home Medication List Reviewed: Yes Lansoprazole (Lansoprazole) 15 Mg Capsule.dr, 15 MG PO DAILY, (Reported) Entered as Reported by: MARTHA PICKENS on 10/13/19 0654 Review of Systems Review of Systems Constitutional: see HPI Eyes: No Symptoms Reported Ears, Nose, Mouth, Throat: no symptoms reported Respiratory: short of breath Cardiovascular: chest pain Gastrointestinal: RUQ, abdominal pain Genitourinary: no symptoms reported Musculoskeletal: no symptoms reported Skin: no symptoms reported All Other Systems Reviewed Negative Unless Noted: Yes Past Ivgqfrb-Fznmwm-Uqbdbg Hx Patient Social History Tobacco Use?: Yes Tobacco type used: Cigarettes Smoking Status: Current Everyday Smoker Use of E-Cig and/or Vaping dev: No Substance use?: No Alcohol Use?: Yes Alcohol type: Hard Liquor Alcohol Frequency: Daily Pt feels they are or have been: No Immunizations Up To Date Influenza Vaccine Up-to-Date: No; Not Current Past Medical History Surgeries: Yes (wisdom teeth) Respiratory: No Cardiac: No Neurological: No Genitourinary: No Gastrointestinal: Yes Gastroesophageal Reflux Musculoskeletal: No Endocrine: No HEENT: No Cancer: No Psychosocial: No Integumentary: No Blood Disorders: No Family Medical History Cataracts 19 MOTHER Deafness or hearing loss 19 FATHER Diabetes mellitus 19 FATHER Headache disorder 19 MOTHER Diabetes, Other Conditions/Hx Physical Exam Vital Signs Vital Signs - First Documented 02/05/22 18:36 Temp 36.5 B/P (MAP) 103/70 (81) Pulse Ox 97 O2 Delivery Room Air Capillary Refill : Less Than 3 Seconds Height, Weight, BMI Height: '" Weight: lbs. oz. kg; 23.00 BMI Method: General Appearance: WD/WN, mild distress HEENT: PERRL/EOMI Neck: non-tender, full range of motion Cardiovascular: regular rate, rhythm Respiratory: lungs clear, normal breath sounds, no respiratory distress, no accessory muscle use, other (tenderness and crepitance to the Right lower ribs - can feel the crepitance anteriorly just over the liver - no ecchymoses or bruising) Gastrointestinal: soft, tenderness (RUQ. normal BS. non distended) Extremities: normal range of motion, non-tender, normal inspection Neurologic/Psychiatric: alert, normal mood/affect, oriented x 3 Skin: normal color, warm/dry Ericka Coma Score Best Eye Response: (4) Open Spontaneously Best Verbal Response: (5) Oriented Best Motor Response: (6) Obeys Commands Progress/Results/Core Measures Results/Orders Lab Results Laboratory Tests Test 02/05/22 19:40 Range/Units White Blood Count 10.1 4.3-11.0 10^3/uL Red Blood Count 4.36 4.30-5.52 10^6/uL Hemoglobin 10.3 L 13.3-17.7 g/dL Hematocrit 35 L 40-54 % Mean Corpuscular Volume 79 L 80-99 fL Mean Corpuscular Hemoglobin 24 L 25-34 pg Mean Corpuscular Hemoglobin Concent 30 L 32-36 g/dL Red Cell Distribution Width 20.3 H 10.0-14.5 % Platelet Count 250 130-400 10^3/uL Mean Platelet Volume 9.7 9.0-12.2 fL Immature Granulocyte % (Auto) 1 % Neutrophils (%) (Auto) 80 H 42-75 % Lymphocytes (%) (Auto) 9 L 12-44 % Monocytes (%) (Auto) 10 0-12 % Eosinophils (%) (Auto) 0 0-10 % Basophils (%) (Auto) 1 0-10 % Neutrophils # (Auto) 8.1 H 1.8-7.8 10^3/uL Lymphocytes # (Auto) 0.9 L 1.0-4.0 10^3/uL Monocytes # (Auto) 1.0 0.0-1.0 10^3/uL Eosinophils # (Auto) 0.0 0.0-0.3 10^3/uL Basophils # (Auto) 0.1 0.0-0.1 10^3/uL Immature Granulocyte # (Auto) 0.1 0.0-0.1 10^3/uL Sodium Level 140 135-145 MMOL/L Potassium Level 4.0 3.6-5.0 MMOL/L Chloride Level 106 98-107 MMOL/L Carbon Dioxide Level 19 L 21-32 MMOL/L Anion Gap 15 H 5-14 MMOL/L Blood Urea Nitrogen 11 7-18 MG/DL Creatinine 0.86 0.60-1.30 MG/DL Estimat Glomerular Filtration Rate 100 BUN/Creatinine Ratio 13 Glucose Level 91 70-105 MG/DL Calcium Level 9.4 8.5-10.1 MG/DL Corrected Calcium 9.2 8.5-10.1 MG/DL Total Bilirubin 0.4 0.1-1.0 MG/DL Aspartate Amino Transf (AST/SGOT) 22 5-34 U/L Alanine Aminotransferase (ALT/SGPT) 15 0-55 U/L Alkaline Phosphatase 48 40-136 U/L Total Protein 7.2 6.4-8.2 GM/DL Albumin 4.3 3.2-4.5 GM/DL My Orders Orders - MILLICENT RAMIREZ MD Ed Iv/Invasive Line Start (02/05/22 19:18) Cbc With Automated Diff (02/05/22 19:18) Comprehensive Metabolic Panel (02/05/22 19:18) Chest 1 View, Ap/Pa Only (02/05/22 19:18) Ct Chest/Abdomen/Pelvis W (02/05/22 19:18) Morphine Injection (Morphine Injection (02/05/22 19:18) Iohexol Injection (Omnipaque 350 Mg/Ml 1 (02/05/22 19:30) Received Contrast (Hold Metformin- Contr (02/05/22 19:30) Ns (Ivpb) (Sodium Chloride 0.9% Ivpb Bag (02/05/22 19:30) Ondansetron Injection (Zofran Injectio (02/05/22 19:45) Tramadol Tablet (Ultram Tablet) (02/05/22 20:45) Medications Given in ED Current Medications Medications Dose Ordered Sig/Ty Route Start Time Stop Time Status Last Admin Dose Admin Iohexol 100 ml ONCE ONCE IV 02/05/22 19:30 02/05/22 19:31 DC 02/05/22 20:00 100 ML Ondansetron HCl 4 mg ONCE ONCE IVP 02/05/22 19:45 02/05/22 19:46 DC 02/05/22 19:47 4 MG Sodium Chloride 100 ml ONCE ONCE IV 02/05/22 19:30 02/05/22 19:31 DC 02/05/22 20:00 80 ML Vital Signs/I&O 02/05/22 18:36 Temp 36.5 B/P (MAP) 103/70 (81) Pulse Ox 97 O2 Delivery Room Air Blood Pressure Mean: 81 Diagnostic Imaging Diagonstic Imaging: CT Comments [facility] [place], [place] NAME: SUSANKARLA Keon [facility] REC#: [id number] PT STATUS: REG ER : 1965 PHYSICIAN: MILLICENT RAMIREZ MD ADMIT DATE: 02/05/22/ER Draft Date of Exam:02/05/22 CT CHEST/ABDOMEN/PELVIS W EXAMINATION: CT chest, abdomen and pelvis with intravenous contrast. TECHNIQUE: Multiple contiguous axial images were obtained through the chest, abdomen and pelvis after the uneventful administration of intravenous contrast. All CT scans use one or more of the following dose optimizing techniques: automated exposure control, MA and/or KvP adjustment based on patient size and exam type or iterative reconstruction. HISTORY: Right lower rib pain, RUQ pain. COMPARISON: None available. FINDINGS: Thyroid: The visualized thyroid gland is normal. Mediastinum: Heart size is normal without significant pericardial effusion. The aorta is normal in caliber. No suspicious lymphadenopathy. Lungs and airways: The lungs are clear without consolidation, pleural effusion or pneumothorax. The airways are normal. Solid organs: The liver is normal without focal lesion. The gallbladder is normal. There is no biliary ductal dilation. Pancreas is normal. Spleen is normal. Adrenal glands are normal. The kidneys are normal without hydronephrosis. Bowel: There is a large hiatal hernia. No bowel obstruction. There is scattered colonic diverticulosis. The appendix is normal. Peritoneum: There is no intraperitoneal free fluid or free air. No suspicious lymphadenopathy. Vasculature: Calcification of the aorta without aneurysm. Musculoskeletal: Mildly displaced fractures of the right lateral 9th and 10th ribs. Pelvis: The prostate gland is normal. The urinary bladder is normal. IMPRESSION: 1. Mildly displaced fractures of the right lateral 9th and 10th ribs. 2. Large hiatal hernia. 3. Colonic diverticulosis. Dictated on workstation # [id number] Dict: 02/05/222014 Trans: 02/05/222018 PJE [id number] Interpreted by: JB HOOD DO Electronically signed by: Rochellegonsashlyn Imaging: Xray Plain Films/CT/US/NM/MRI: chest Comments [facility] [place], [place] NAME: KARLA DAVIS [facility] REC#: [id number] PT STATUS: REG ER : 1965 PHYSICIAN: MILLICENT RAMIREZ MD ADMIT DATE: 02/05/22/ER Signed Date of Exam:02/05/22 CHEST 1 VIEW, AP/PA ONLY EXAMINATION: Chest 1 view. HISTORY: Right lower rib pain. COMPARISON: CT chest 02/05/2022. FINDINGS: Heart size and pulmonary vasculature are normal. The lungs are clear without consolidation, pleural effusion or pneumothorax. Right rib fractures are better seen on same-day CT of the chest. A likely hiatal hernia. IMPRESSION: No acute radiographic abnormality in the chest. Dictated by: Dictated on workstation # [id number] Dict: 02/05/222012 Trans: 02/05/222016 PJE [id number] Interpreted by: JB HOOD DO Counseling-Symptomatic: 3-10 Minutes Follow-up with PCP to: Discuss Further Options Departure Impression Primary Impression: Rib fractures Qualified Codes: S22.41XA - Multiple fractures of ribs, right side, initial encounter for closed fracture Disposition: HOME, SELF-CARE Condition: Stable Departure-Patient Inst. Decision time for Depature: 20:40 Referrals: SANA CANTRELL MD (PCP/Family) Primary Care Physician Patient Instructions: Rib Fracture or Bruised Rib ED Add. Discharge Instructions: Use the incentive spirometer every hour to help take deep breaths. Take the tramadol once every 6 hours as needed for pain. This medication can ma ke you constipated you should be on a daily stool softener while taking prescribed pain medicines. You can also take Tylenol extra strength 2 tablets every 6 hours as needed for pain. Please follow-up with your primary care provider. Return to the emergency room if you have worsening shortness of breath, fever over 101 or any other emergent concerning symptoms. You should really try to stop smoking. Scripts Tramadol HCl (Tramadol HCl) 50 Mg Tablet 50 MG PO Q6H PRN for PAIN, #20 TAB 0 Refills Prov: MILLICENT RAMIREZ MD 02/05/22 MILLICENT RAMIREZ MD February 05, 2022 19:24
[2022-02-05] MEDS ORDERED: HOLD METFORMIN - RECEIVED CONTRAST 20 ML VIAL IV SCH (19:30)
[2022-02-05] MEDS ORDERED: NS 100 ML (IVPB) BAG IV ONE (19:30)
[2022-02-05] MEDS ORDERED: IOHEXOL 350 MG/ML 100 ML (OMNIPAQUE 350) VIAL IV ONE (19:30)
[2022-02-05] MEDS ORDERED: ONDANSETRON 4 MG/2 ML (SDV) Z0FRAN IVP ONE (19:45)
[2022-02-05 19:47] LABS: BASOPHILS # (AUTO) 0.1 10^3/uL (0.0-0.1); BASOPHILS % (AUTO) 1 % (0-10); EOSINOPHILS % (AUTO) 0 % (0-10); HEMATOCRIT 35 % (40-54); HEMOGLOBIN 10.3 g/dL (13.3-17.7); LYMPHOCYTES # (AUTO) 0.9 10^3/uL (1.0-4.0); LYMPHOCYTES % (AUTO) 9 % (12-44); MEAN CORPUSCULAR HEMOGLOBIN 24 pg (25-34); MEAN CORPUSCULAR HGB CONC 30 g/dL (32-36); MEAN CORPUSCULAR VOLUME 79 fL (80-99); MEAN PLATELET VOLUME 9.7 fL (9.0-12.2); MONOCYTES % (AUTO) 10 % (0-12); NEUTROPHILS # (AUTO) 8.1 10^3/uL (1.8-7.8); NEUTROPHILS % (AUTO) 80 % (42-75); PLATELET COUNT 250 10^3/uL (130-400); WHITE BLOOD COUNT 10.1 10^3/uL (4.3-11.0)
[2022-02-05 20:08] LABS: ALBUMIN 4.3 GM/DL (3.2-4.5); BILIRUBIN,TOTAL 0.4 MG/DL (0.1-1.0); CALCIUM 9.4 MG/DL (8.5-10.1); CREATININE SERUM 0.86 MG/DL (0.60-1.30); TOTAL PROTEIN 7.2 GM/DL (6.4-8.2)
--- NOTE | 2022-02-05 20:16 | Diagnostic Imaging Report ---
EXAMINATION: Chest 1 view. HISTORY: Right lower rib pain. COMPARISON: CT chest 02/05/2022. FINDINGS: Heart size and pulmonary vasculature are normal. The lungs are clear without consolidation, pleural effusion or pneumothorax. Right rib fractures are better seen on same-day CT of the chest. A likely hiatal hernia. IMPRESSION: No acute radiographic abnormality in the chest. Dictated by: Dictated on workstation # [id number]
--- NOTE | 2022-02-05 20:20 | Diagnostic Imaging Report ---
EXAMINATION: CT chest, abdomen and pelvis with intravenous contrast. TECHNIQUE: Multiple contiguous axial images were obtained through the chest, abdomen and pelvis after the uneventful administration of intravenous contrast. All CT scans use one or more of the following dose optimizing techniques: automated exposure control, MA and/or KvP adjustment based on patient size and exam type or iterative reconstruction. HISTORY: Right lower rib pain, RUQ pain. COMPARISON: None available. FINDINGS: Thyroid: The visualized thyroid gland is normal. Mediastinum: Heart size is normal without significant pericardial effusion. The aorta is normal in caliber. No suspicious lymphadenopathy. Lungs and airways: The lungs are clear without consolidation, pleural effusion or pneumothorax. The airways are normal. Solid organs: The liver is normal without focal lesion. The gallbladder is normal. There is no biliary ductal dilation. Pancreas is normal. Spleen is normal. Adrenal glands are normal. The kidneys are normal without hydronephrosis. Bowel: There is a large hiatal hernia. No bowel obstruction. There is scattered colonic diverticulosis. The appendix is normal. Peritoneum: There is no intraperitoneal free fluid or free air. No suspicious lymphadenopathy. Vasculature: Calcification of the aorta without aneurysm. Musculoskeletal: Mildly displaced fractures of the right lateral 9th and 10th ribs. Pelvis: The prostate gland is normal. The urinary bladder is normal. IMPRESSION: 1. Mildly displaced fractures of the right lateral 9th and 10th ribs. 2. Large hiatal hernia. 3. Colonic diverticulosis. Dictated by: Dictated on workstation # [id number]
[2022-02-05] MEDS ORDERED: TRM50T PO (20:41)
[2022-02-05 21:04] VITALS: BP 105/72
== END 2022-02-05 21:06 | disposition home or self-care (01) ==
LOC: EDUNIT# 18:16 → ER 18:17
DX: S22.41XA Multiple fractures of ribs, right side, initial encounter for closed fracture (principal); R10.11 Right upper quadrant pain; F17.210 Nicotine dependence, cigarettes, uncomplicated; W10.9XXA Fall (on) (from) unspecified stairs and steps, initial encounter
CPT/HCPCS: 36415; 71045; 71260; 74177; 80053; 85025

== ENCOUNTER → 2022-06-19 | Outpatient (CLI) | payer BC ==
[~2022-06-19] MED LIST changes: +CATHETER FLUSH 10 ML SYR IV PRN; +HOLD METFORMIN - RECEIVED CONTRAST 20 ML VIAL IV SCH; +IOHEXOL 350 MG/ML 100 ML (OMNIPAQUE 350) VIAL IV ONE; +NS 100 ML (IVPB) BAG IV ONE; +TRM50T PO
--- NOTE | 2022-06-19 14:40 | Diagnostic Imaging Report ---
PROCEDURE: CT angiography of the head and CT angiography of the neck with and without contrast. TECHNIQUE: Contiguous noncontrast images were obtained from the skull base through the vertex. After intravenous contrast administration, helical CT angiography of the neck was performed. Source data was reformatted into 3D MIP projections. Delayed post contrast acquisition was also obtained. Auto Exposure Controls were utilized during the CT exam to meet ALARA standards for radiation dose reduction. INDICATION: Recurrent TIAs with history of stroke in 2019. COMPARISON: No prior studies are available for comparison. FINDINGS: The preliminary radiograph of the brain demonstrates the ventricles and sulci to be within normal limits. No sulcal effacement or midline shift is identified. No acute intra-axial or extra-axial hemorrhage is detected. Delayed post contrast imaging through the brain is without abnormal enhancing lesion. The CT angiographic portion of the study does show a three-vessel branching pattern to the aortic arch. The right and left common carotid arteries are widely patent. There is some mild calcified plaque in the distal right common carotid artery. Both carotid bifurcations are unremarkable. The right and left internal carotid arteries are widely patent. The left vertebral artery is dominant. Both vertebral arteries are widely patent. The basilar artery is patent. The right and left posterior cerebral arteries are widely patent. The M1 and M2 branches of the right and left middle cerebral arteries are widely patent. No intracranial stenosis or thromboembolism is seen. No large vessel occlusion is detected. The right and left anterior cerebral arteries are widely patent. IMPRESSION: Essentially unremarkable CT angiogram of the head and neck. No intracranial stenosis, thromboembolism, or large vessel occlusion is detected. Dictated by: Dictated on workstation # [id number]
== END ==
LOC: RAD 13:15
PROVIDERS: ATTEND Family Medicine
DX: G45.9 Transient cerebral ischemic attack, unspecified (principal)
CPT/HCPCS: 70496; 70498